=== PATIENT | male | born 1985 | race Caucasian/White ===

== ENCOUNTER 2019-09-21 12:00 | Outpatient (CLI) | payer OTHER, SELFPAY ==
--- NOTE | 2019-09-21 11:30 | DI.RAD_ITS ---
EXAM: XR LUMBAR SPINE COMPLETE CLINICAL HISTORY: L-spine pain, low back pain, M54.5, assess bony aligntment etc s/p trauma TECHNIQUE: COMPARISON: No exams were available for comparison FINDINGS: Five views were obtained. The intervertebral disc spaces are well maintained. No evidence of spondy lolysis or spondylolisthesis. No evidence of acute fracture. IMPRESSION: Negative examination of the lumbar spine.
== END 2019-09-21 12:20 ==
PROVIDERS: PCP Nurse Practitioner; Visit Provider Nurse Practitioner Adult Health
DX: M54.5 Low back pain (principal)
CPT/HCPCS: 72110

== ENCOUNTER 2019-11-01 09:17 | Outpatient (CLI) | payer OTHER, SELFPAY ==
[2019-11-01 10:23] LABS: ALT 54 U/L (16-63); AST 42 U/L (15-37); Albumin 4.4 g/dL (3.4-5.0); Alkaline Phosphatase 64 U/L (46-116); Anion Gap 11.4 mmol/L (3-11); BUN 12 mg/dL (7-18); Bilirubin, Total 0.9 mg/dL (0.2-1.0); CO2 27.6 mmol/L (21.0-32.0); CREATININE 0.86 mg/dL (0.70-1.30); Calcium 8.8 mg/dL (8.5-10.1); Calculated LDL 182 mg/dL; Chloride 103 mmol/L (98-107); Cholesterol 283 mg/dL (<200); Glucose 85 mg/dL (74-106); HDL Cholesterol 80 mg/dL (40-60); Potassium 4.2 mmol/L (3.5-5.1); Sodium 142 mmol/L (136-145); Total Protein 7.3 g/dL (6.4-8.2); Triglyceride 106 mg/dL (<150)
== END 2019-11-01 09:37 ==
PROVIDERS: PCP Nurse Practitioner; Visit Provider Nurse Practitioner
DX: I10 Essential (primary) hypertension (principal); E78.5 Hyperlipidemia, unspecified
CPT/HCPCS: 36415; 80053; 80061

== ENCOUNTER 2020-02-20 02:14 | Outpatient (CLI) | payer OTHER, SELFPAY ==
--- NOTE | 2020-02-20 08:43 | DI.MRI_ITS ---
EXAM: MR BRAIN WO CLINICAL HISTORY: abnormal brain MRI; ?MS, R90.89. TECHNIQUE: Multiplanar multisequence MRI was performed. COMPARISON: MRI - BRAIN W/WO CONTRAST from 01/01/2017 FINDINGS: MR examination of the brain was performed according to the usual protocol. Examination is compared w ith prior study of December, which showed bihemispheric periventricular white matter signal abno rmalities on T2 weighted and FLAIR imaging. These findings are again present on the current examinat ion and appear unchanged in comparison with the prior study. No new lesions identified. The orbital structures appear intact. No gross abnormality of signal in the optic nerves. Temporal bone structures appear intact. Pituitary is unremarkable. There is normal flow void in the [place] vasculature. Diffusion weighted imaging is unremarkable. Susceptibility weighted imaging shows no evidence of int racranial hemorrhage. IMPRESSION: Stable areas of signal abnormality in periventricular white matter bilaterally, most prominent fronta lly, no change since examination of January 01, 2017. No new lesion identified. No other significant findings. DATA REPOSITORY:
== END 2020-02-20 02:34 ==
PROVIDERS: PCP Nurse Practitioner; Visit Provider Psychiatry & Neurology Neurology
DX: R90.89 Other abnormal findings on diagnostic imaging of central nervous system (principal); R90.82 White matter disease, unspecified
CPT/HCPCS: 70551

== ENCOUNTER → 2020-02-29 14:45 | Outpatient (BNVA) | payer OTHER, SELFPAY | PROVIDERS: PCP Nurse Practitioner; Referring Provider Nurse Practitioner; Visit Provider Psychiatry & Neurology Neurology | DX: R90.89 Other abnormal findings on diagnostic imaging of central nervous system (principal); I10 Essential (primary) hypertension | CPT/HCPCS: 99202; 99203 ==

== ENCOUNTER 2020-03-01 00:26 | Outpatient (CLI) | payer OTHER, SELFPAY ==
--- NOTE | 2020-03-01 06:30 | DI.MRI_ITS ---
EXAM: MR LUMBAR SPINE WO CLINICAL HISTORY: LBP on the right, radiates to right hip.m54.5. TECHNIQUE: Multiplanar multisequence MRI was performed. COMPARISON: XR LUMBAR SPINE COMPLETE from 09/21/2019 FINDINGS: The marrow signal is normal. The conus medullaris appears intact. The T12-L1 through L4-5 discs s how normal height and hydration. At L 5 S1, there is a central disc herniation with some inferior ex trusion of disc material. The herniated disc material measures 13 millimeters transverse by 14 alexandre meters cephalo caudad by 6 millimeters AP. There is no definite nerve root impingement. There is no neural foraminal narrowing at any level. The central canal is well maintained.. IMPRESSION: Central disc herniation with mild inferior extrusion of disc material at L5-S1. No definite nerve ro ot impingement. DATA REPOSITORY:
== END 2020-03-01 00:46 ==
PROVIDERS: PCP Nurse Practitioner; Visit Provider Nurse Practitioner
DX: M54.5 Low back pain (principal); M25.551 Pain in right hip; M51.27 Other intervertebral disc displacement, lumbosacral region
CPT/HCPCS: 72148

== ENCOUNTER 2020-07-09 10:55 | Emergency (ER) | payer OTHER, SELFPAY ==
[2020-07-09 11:00] VITALS: BP 163/116; PULSE 104; RESP 20; TEMP 36.7; O2SAT 98
--- NOTE | 2020-07-09 11:00 | DI.RAD_ITS ---
EXAM: XR ANKLE LT COMPLETE CLINICAL HISTORY: pain, swelling, injury 2 weeks ago TECHNIQUE: 2D digital imaging was performed. COMPARISON: No exams were available for comparison FINDINGS: BONES: No acute fracture is present. No bony destructive lesion is seen. JOINTS:The ankle mortise is normally aligned. SOFT TISSUE: Normal. IMPRESSION: Unremarkable radiographs of the left ankle. DATA REPOSITORY: RADIATION DOSE DELIVERED:
--- NOTE | 2020-07-09 11:05 | ED.GENADUL_ITS ---
Discharge Plan Disposition Patient Disposition: HOME Condition: Stable Discharge Details Chief Complaint: Orthopedic Clinical Impression: Left ankle sprain Primary Care Provider: Paula Good ED Provider: Abena Vicente Home Meds and New Rx's Prescriptions: No Action lisinopril 20 mg tablet 40 mg PO DAILY Qty: 180 RF: 3 Discharge Instructions Instructions: Ankle Sprain (ED) Additional Instructions: Rest, ice, compression, elevation. Please take Tylenol or Ibuprofen with food every 4-6 hours as needed for pain and swelling. Follow up with primary care provider in 3-5 days. Return to ED sooner if any worsening or concerns. Increase oral fluids. Wear splint for comfort. Referrals: Paula Good, [employer] [Primary Care Provider] - Discharge Data Discharge Date/Time-TO BE ENTERED AT DEPARTURE: 07/09/20 12:31 Medical Decision Making 34-year-old male presents the ER with left ankle pain. Patient states pain is worsened over the last 2 to 3 days. He did hit the lateral aspect of his ankle 2 weeks ago while loading a boat on metal crossbar. He has been ambulatory since injury. Has not taken any Tylenol or ibuprofen prior to arrival and declines any upon arrival. He is ambulatory in department. He has no obvious deformity no severe swelling. He reports with plantarflexion he does have increased sharp shooting pains. COMPARISON: No exams were available for comparison FINDINGS: BONES: No acute fracture is present. No bony destructive lesion is seen. JOINTS:The ankle mortise is normally aligned. SOFT TISSUE: Normal. IMPRESSION: Unremarkable radiographs of the left ankle. Lace up ankle splint given to patient verbalized understanding of home care of rest ice compression elevation. HPI General Mode of arrival: ambulatory . Date/Time Provider Initiated Documentation: 07/09/20 10:56 . Limitations to Documentation: no limitations . Information obtained by: patient . HPI Narrative: 34-year-old male presents the ER with left ankle pain. Patient states pain is worsened over the last 2 to 3 days. He did hit the lateral aspect of his ankle 2 weeks ago while loading a boat on metal crossbar. He has been ambulatory since injury. Has not taken any Tylenol or ibuprofen prior to arrival and declines any upon arrival. He is ambulatory in department. He has no obvious deformity no severe swelling. He reports with plantarflexion he does have increased sharp shooting pains. Related Data Home Medications Medication Instructions Recorded Confirmed lisinopril 20 mg tablet 40 mg PO DAILY #180 tab 02/07/20 07/09/20 Previous Rx's Medication Instructions Recorded lisinopril 20 mg tablet 40 mg PO DAILY #180 tab 02/07/20 Allergies Allergy/AdvReac Type Severity Reaction Status Date / Time cyclobenzaprine AdvReac Severe Hallucinati Verified 07/09/20 11:03 [From Flexeril] on/Nightmar e General Stated Complaint: Orthopedic FRANCISCO: 4 Review of Systems All systems reviewed & are unremarkable except as noted in HPI and below Musculoskeletal Musculoskeletal: Reports system reviewed and no additional complaints, except as documented, Reports arthralgias (Left ankle) and Reports joint swelling [facility] Medical History Abnormal brain MRI (Acute) 2017 with Neuro f/u (he elected to not pursue LP) Hyperlipidemia (Acute 04/01/17) Hypertension (Acute 06/06/15) Lumbar disc herniation (Acute) Lumbar spine pain (Acute) Nephrolithiasis (Acute 01/23/16) Primary hyperparathyroidism (Acute 08/20/15) [facility]ul[facility] daw[facility] Surgical History S/P ORIF (open reduction internal fixation) fracture (Acute) left ulna S/P parathyroidectomy (Acute) Family History Mother No problems noted. Father No problems noted. Father No problems noted. Social History Smoking/Tobacco Use Status: Former Tobacco Use Alcohol Intake: current Alcohol Intake frequency: 0-2 drinks per day Drug use: Never Household members: family Number of Children: 3 current occupation: [employer]; [employer] Do you feel safe at home: Yes Do you feel safe in your relationship?: Yes Exam Const General: cooperative, healthy appearing, comfortable, no acute distress, well developed and well groomed Nutritional Appearance: average body habitus and well nourished Orientation: alert, awake and oriented x3 Extrem Left lower extremity: normal to inspection, full ROM, normal capillary refill, no joint enlargement and ankle Details: normal to inspection and tenderness Location: anterolaterally; no pitting edema, no warmth, no ecchymosis, no crepitus and achilles tendon exam normal; no cyanosis and no edema Course Vital Signs Vital signs: Vital Signs Temperature 36.7 C 07/09/20 11:00 Pulse 104 H 07/09/20 11:00 Respiratory Rate 20 07/09/20 11:00 Blood Pressure 163/116 H 07/09/20 11:00 Pulse Oximetry 98 07/09/20 11:00 Temperature 36.7 C 07/09/20 11:00 Temperature Source Skin 07/09/20 11:00 Pulse 104 H 07/09/20 11:00 Respiratory Rate 07/09/20 11:00 Blood Pressure 163/116 H 07/09/20 11:00 Blood Pressure Position Sitting 07/09/20 11:00 Pulse Oximetry 98 07/09/20 11:00 Oxygen Delivery Method Room Air 07/09/20 11:00 Oxygen Flow Rate 0 07/09/20 11:00 Pain Level 1 07/09/20 11:00 Comment 07/09/20 11:00
[2020-07-09 12:27] VITALS: BP 141/103; PULSE 96; RESP 16; TEMP 36.8; O2SAT 98
== END 2020-07-09 12:31 | disposition home or self-care (01) ==
PROVIDERS: Emergency Provider Registered Nurse Emergency; PCP Nurse Practitioner
DX: S93.402A Sprain of unspecified ligament of left ankle, initial encounter (principal); W22.09XA Striking against other stationary object, initial encounter; I10 Essential (primary) hypertension
CPT/HCPCS: 99283; 73610; L1902

== ENCOUNTER 2021-09-23 03:35 | Outpatient (CLI) | payer OTHER, SELFPAY ==
[2021-09-23 11:15] LABS: ALT 82 U/L (16-63); AST 56 U/L (15-37); Albumin 4.3 g/dL (3.4-5.0); Alkaline Phosphatase 71 U/L (46-116); Anion Gap 11.7 mmol/L (3-11); BUN 11 mg/dL (7-18); CO2 27.3 mmol/L (21.0-32.0); CREATININE 0.9 mg/dL (0.70-1.30); Calculated LDL 216 mg/dL (<100); Chloride 102 mmol/L (98-107); Cholesterol 311 mg/dL (<200); Glucose 80 mg/dL (74-106); HDL Cholesterol 82 mg/dL (40-60); Potassium 4.5 mmol/L (3.5-5.1); Sodium 141 mmol/L (136-145); Total Protein 7.5 g/dL (6.4-8.2); Triglyceride 68 mg/dL (<150)
== END 2021-09-23 03:36 | disposition home or self-care (01) ==
LOC: LBO 03:35
PROVIDERS: PCP Nurse Practitioner; Visit Provider Nurse Practitioner
DX: I10 Essential (primary) hypertension (principal); E78.5 Hyperlipidemia, unspecified
CPT/HCPCS: 36415; 80053; 80061

== ENCOUNTER 2021-11-06 01:49 | Outpatient (CLI) | payer OTHER, SELFPAY ==
--- NOTE | 2021-11-06 09:00 | DI.MRI_ITS ---
Exam(s) MR LUMBAR SPINE WO EXAM: MR LUMBAR SPINE WO CLINICAL HISTORY: Chronic lumbar spine pain with right radiculopathy. TECHNIQUE: Multiplanar multisequence MRI of the Lumbar spine was performed. COMPARISON: MR MR LUMBAR SPINE WO from 03/01/2020 FINDINGS: Conus medullaris is at normal level. There is no evidence of conus mass nor subjacent clumping of in trathecal nerve roots to suggest arachnoiditis. The distal thecal sac appears unremarkable.There is no evidence of Tarlov intrasacral cysts nor other significant findings within the sacral canal Bones:There are no fractures nor ominous osseous lesions in the lumbar vertebral bodies and visualize d sacrum. No Modic type sub endplate marrow changes. With respect to the individual levels... T12-L1: Unremarkable L1-2: Normal disc height and signal. No disc herniation nor central canal stenosis.No foraminal steno sis L2-3: Normal disc height. No disc herniation nor central canal stenosis.No foraminal stenosis.No face t arthropathy. L3-4: Normal disc height. No disc herniation or central canal stenosis.No foraminal stenosis.No face t arthropathy. L4-5: Normal disc height and signal. No disc herniation. No canal stenosis. No foraminal stenosis. No facet arthropathy. L5-S1: Previously described posterior central disc herniation mild inferior extrusion exhibits minima l if any significant change. Is again noted to contact the anterior aspect of the thecal sac but herbert s not truly indent the anterior aspect of the thecal sac this disc herniation does not extend appreci ably into the neural foramina and there is no foraminal stenosis on either side. No osseous central canal stenosis. No significant facet arthropathy. Soft tissues: paraspinal soft tissues appear unremarkable. IMPRESSION: 1. No significant change compared to prior MRI scan of 03/01/2020. The previously described L5-S1 di sc herniation exhibits minimal if any significant change. 2. All the other disc spaces continue to appear unremarkable. There is no central nor foraminal sten osis in the lumbosacral spine. 3. There is no significant facet arthropathy. DATA REPOSITORY:
== END 2021-11-06 02:09 ==
PROVIDERS: PCP Nurse Practitioner; Visit Provider Nurse Practitioner
DX: M51.16 Intervertebral disc disorders with radiculopathy, lumbar region (principal); M54.50 Low back pain, unspecified
CPT/HCPCS: 72148

== ENCOUNTER 2022-03-19 01:09 | Outpatient (CLI) | payer OTHER, SELFPAY ==
--- NOTE | 2022-03-19 | DI.MRI_ITS ---
Exam(s) MR LOWER JOINT RT WO EXAM: MR LOWER JOINT RT WO CLINICAL HISTORY: RT HIP PAIN M25.551 HIP AND BACK PAIN W/ INTERNAL ROTATION TECHNIQUE: Multiplanar multisequence MRI of the knee was performed. COMPARISON: CR XR LUMBAR SPINE COMPLETE from 09/21/2019 MR MR LUMBAR SPINE WO from 11/06/2021 FINDINGS: MARROW:There is no evidence of stress fracture, avascular necrosis nor prominent hip joint effusion. There are no significant osseous lesions. There is a small 5 millimeters subarticular focus of sign al abnormality in the right hip femoral head-junction which probably a synovial pit. There is no bon y excrescence on the anterior femoral neck to suggest CAM-type JULIENNE and there is no loss of the normal femoral head-neck junction curvature at this level. There do not appear to be obvious osteophytes. ARTICULAR: There is no abnormal thickening of the ligamentum teres no abnormal signal at the level th e fovea central is. No chondral defects noted, however, there is a small 2 x 2 millimeters subarticu lar cysts in the superior aspect of the acetabulum. No prominent surrounding edema. LABRUM: There is a thin tear in the anterosuperior labrum. There is no evidence of paralabral cyst. SOFT TISSUES: No evidence of gluteus medius tendinitis. No abnormal signal at the hamstrings ischial tuberosity attachments. BURSAE: No evidence of trochanteric bursitis nor iliopsoas bursitis. IMPRESSION: 1. There is a small tear in the anterosuperior labrum. There is no paralabral cyst. 2. No evidence of obvious CAM-type JULIENNE. 3. Minimal degenerative changes in the hip joint. There is a tiny 2 millimeter subarticular cyst in the superior aspect of the acetabulum, not associated with prominent surrounding bone edema. 4. No evidence of stress fracture or avascular necrosis. No asymmetric hip joint effusion. DATA REPOSITORY:
== END 2022-03-19 01:29 ==
PROVIDERS: PCP Nurse Practitioner; Visit Provider Physician Assistant Medical
DX: M25.551 Pain in right hip (principal); M54.59 Other low back pain; S73.191A Other sprain of right hip, initial encounter; M16.11 Unilateral primary osteoarthritis, right hip; M24.851 Other specific joint derangements of right hip, not elsewhere classified
CPT/HCPCS: 73721

== ENCOUNTER 2023-01-21 10:00 | Outpatient (REF) | payer OTHER, SELFPAY ==
[2023-01-21 15:26] LABS: HCT 42.8 % (40.0-50.0); HGB 14.8 g/dL (13.5-17.5); MCH 32.8 pg (27.0-33.0); MCHC 34.6 % (32.0-36.0); MCV 95 fL (80-95); MPV 8.5 fL (8.0-11.0); Platelet Count 290 10^3/uL (130-400); RBC 4.51 10^6/uL (4.36-5.78); RDW 12.4 % (11.8-14.1); RDW-SD 43.8 fL; WBC 7.53 10^3/uL (4.4-10.8)
[2023-01-21 15:38] LABS: ALT 51 U/L (16-63); AST 35 U/L (15-37); Alkaline Phosphatase 106 U/L (46-116); Anion Gap 9.9 mmol/L (3-11); BUN 11 mg/dL (7-18); Bilirubin, Total 2.7 mg/dL (0.2-1.0); CO2 30.1 mmol/L (21.0-32.0); CREATININE 0.8 mg/dL (0.70-1.30); Calcium 10.1 mg/dL (8.5-10.1); Calculated LDL 189 mg/dL (<100); Chloride 98 mmol/L (98-107); Cholesterol 295 mg/dL (<200); Estimated GFR 117.63 (mL/min/1.73m2); Glucose 98 mg/dL (74-106); HDL Cholesterol 91 mg/dL (40-60); Potassium 3.5 mmol/L (3.5-5.1); Sodium 138 mmol/L (136-145); Total Protein 7.9 g/dL (6.4-8.2); Triglyceride 77 mg/dL (<150)
== END 2023-01-21 10:01 | disposition home or self-care (01) ==
LOC: LBN 10:00
PROVIDERS: PCP Nurse Practitioner; Visit Provider Nurse Practitioner
DX: E78.5 Hyperlipidemia, unspecified (principal); I10 Essential (primary) hypertension
CPT/HCPCS: 80053; 80061; 85027

== ENCOUNTER 2024-04-05 12:39 | Outpatient (CLI) | payer OTHER, SELFPAY ==
[2024-04-05 10:00] LABS: ALT 42 U/L (16-63); AST 27 U/L (15-37); Alkaline Phosphatase 64 U/L (46-116); BUN 17 mg/dL (7-18); Bilirubin, Total 1.9 mg/dL (0.2-1.0); CREATININE 1.1 mg/dL (0.70-1.30); Calcium 9.1 mg/dL (8.5-10.1); Calculated LDL 51 mg/dL (<100); Chloride 104 mmol/L (98-107); Cholesterol 183 mg/dL (<200); Estimated GFR 88.67 (mL/min/1.73m2); Glucose 95 mg/dL (74-106); HDL Cholesterol 83 mg/dL (40-60); Potassium 4.1 mmol/L (3.5-5.1); Sodium 142 mmol/L (136-145); Triglyceride 249 mg/dL (<150)
== END 2024-04-05 12:40 | disposition home or self-care (01) ==
LOC: LBO 12:39
PROVIDERS: PCP Nurse Practitioner; Visit Provider Nurse Practitioner
DX: E78.5 Hyperlipidemia, unspecified (principal); I10 Essential (primary) hypertension
CPT/HCPCS: 36415; 80053; 80061

== ENCOUNTER 2025-06-05 01:32 | Outpatient (CLI) | payer OTHER, SELFPAY ==
--- NOTE | 2025-06-05 08:15 | DI.US_ITS ---
Exam(s) US BREAST LT COMPLETE MG MAMMO DIAGNOSTIC BI EXAM: MG MAMMO DIAGNOSTIC BI AND COMPLETE LEFT BREAST ULTRASOUND CLINICAL HISTORY: LT breast mass, N63.42 UNSPECIFIED LUMP IN L BREAST, SUBAREOLAR. TECHNIQUE: BILATERAL CC AND MLO mammographic images were obtained with 3D tomosynthesis technique and utilizing computer aided detection (CAD). COMPLETE LEFT BREAST ULTRASOUND performed including all 4 quadrants as well as the retroareolar region and axillary region. COMPARISON: None. This is a 39-year-old male patient with retroareolar left breast lump. Denies nipple discharge. FINDINGS: DIAGNOSTIC BILATERAL MAMMOGRAM: There are no significant focal right breast findings. On the left side there is moderate-prominent gynecomastia. No distinct focal lesions. There are no malignant-appearing microcalcifications. No significant architectural distortion or skin thickening-retraction. COMPLETE LEFT BREAST ULTRASOUND: Ultrasound findings are consistent with gynecomastia. There is no evidence of solid or significant cystic lesions in all 4 quadrants. Scanning of the ipsilateral axilla reveals no significant adenopathy. IMPRESSION: There is moderate-prominent unilateral left-sided gynecomastia. What is interesting here is at there is no evidence of gynecomastia in the opposite-right breast, given the amount of gynecomastia which is evident in the left breast. The patient was informed of the findings and follow-up recommendations by myself prior to leaving the department today. He already has a scheduled follow-up visit was his or ring provider BI-RADS Category 2 - Benign Findings (gynecomastia left breast) Breast Density - Category C - The breast are heterogeneously dense, which may obscure small masses. Breast density Category C or D implies that the patient has dense breast tissue. Dense breast tissue can make it harder to find cancer on a mammogram. Dense breast tissue is also associated with an increased risk of breast cancer. This information about the result of the mammogram report was provided to the patient to raise their awareness. Use this report when you speak with the patient about their risks for breast cancer, which includes their family history. At that time, you may recommend additional screening tests (Ultrasound or MRI) as these tests may add significant information. A negative radiographic report should not delay biopsy if a dominant or clinically suspicious mass is present. Up to ten percent of cancers are not identified on mammography. A negative report may reinforce clinical impression. Adenosis and dense breasts may obscure an underlying neoplasm. False positive reports average 6 to 10%. Patient will receive a letter notifying them of these results.
== END 2025-06-05 01:52 ==
PROVIDERS: PCP Family Medicine; Visit Provider Family Medicine
DX: N63.42 Unspecified lump in left breast, subareolar (principal); Z12.31 Encounter for screening mammogram for malignant neoplasm of breast
CPT/HCPCS: 76642; 77062; 77066; G0279